=== PATIENT | male | born 1960 | race Caucasian/White ===

== ENCOUNTER 2022-12-02 14:14 | Outpatient (CLI) | payer BC, SELFPAY ==
[2022-12-02 16:32] LABS: Albumin* 4.6 g/dL (3.3-5.0); Chloride* 110 mmol/L (96-114)
[2022-12-02 16:33] LABS: Potassium* 4.6 mmol/L (3.6-5.1); Sodium* 145 mmol/L (135-149)
[2022-12-02 16:35] LABS: Bilirubin Total* 0.5 mg/dL (0.1-1.5); Carbon Dioxide* 27 mmol/L (20-32); Cholesterol* 249 mg/dL (90-199); Creatinine* 1.1 mg/dL (0.5-1.5); Estimated Glomerular Filt Rate 76 ml/min
[2022-12-02 16:36] LABS: Alanine Aminotransferase* 33 U/L (4-50); Alkaline Phosphatase* 67 U/L (40-150); Aspartate Amino Transferase* 34 U/L (12-35); Blood Urea Nitrogen* 23 mg/dL (7-30); Calcium* 9.6 mg/dL (8.4-10.6); Glucose* 98 mg/dL (60-115); HDL Cholesterol* 51 mg/dL (>=40); LDL Cholesterol Calculated 164 mg/dL (<100); Total Protein* 7.2 g/dL (6.0-8.3); Triglycerides* 172 mg/dL (40-149)
[2022-12-02 16:56] LABS: Vitamin D 25 Hydroxy* 31 ng/mL (30-80)
[2022-12-02 17:07] LABS: PSA Screen* 1.01 ng/mL (0.10-4.00)
[2022-12-02 17:09] LABS: TSH With Reflex to FT4* 0.067 uIU/mL (0.270-4.200)
[2022-12-02 18:18] LABS: Free T4 Free Thyroxine* 1.74 ng/dL (0.70-1.85)
== END 2022-12-02 14:15 | disposition home or self-care (01) ==
PROVIDERS: PCP Family Medicine; Visit Provider Family Medicine
DX: Z00.00 Encounter for general adult medical examination without abnormal findings (principal); E03.9 Hypothyroidism, unspecified; E78.5 Hyperlipidemia, unspecified; E55.9 Vitamin D deficiency, unspecified; R79.89 Other specified abnormal findings of blood chemistry; Z12.5 Encounter for screening for malignant neoplasm of prostate
CPT/HCPCS: 80053; 80061; 82306; 84153; 84439; 84443

== ENCOUNTER 2023-03-27 16:12 | Outpatient (CLI) | payer BC, SELFPAY | END 2023-03-27 16:13 | disposition home or self-care (01) | PROVIDERS: PCP Family Medicine; Visit Provider Family Medicine | DX: Z11.3 Encounter for screening for infections with a predominantly sexual mode of transmission (principal); W26.9XXA Contact with unspecified sharp object(s), initial encounter | CPT/HCPCS: 86703; 86706; 86803; 87341 ==

== ENCOUNTER 2023-09-19 13:25 | Outpatient (CLI) | payer BC, SELFPAY | END 2023-09-19 13:26 | disposition home or self-care (01) | LOC: NFLDREF 09-22 07:12 | PROVIDERS: PCP Family Medicine; Referring Provider Family Medicine; Visit Provider Family Medicine | DX: S61.211S Laceration without foreign body of left index finger without damage to nail, sequela (principal); Y99.0 Civilian activity done for income or pay | CPT/HCPCS: 86703; 86706; 86708; 86803; 87340; 87341 ==

== ENCOUNTER 2023-10-06 14:00 | Outpatient (REF) | payer BC, SELFPAY | END 2023-10-06 14:01 | disposition home or self-care (01) | LOC: NFLDREF 14:00 | PROVIDERS: PCP Family Medicine; Referring Provider Family Medicine; Visit Provider Family Medicine | DX: Z57.8 Occupational exposure to other risk factors (principal); W26.9XXA Contact with unspecified sharp object(s), initial encounter | CPT/HCPCS: 86706; 86708 ==

== ENCOUNTER 2023-12-08 14:50 | Outpatient (CLI) | payer BC, SELFPAY ==
--- OUTSIDE RECORDS SUMMARY | 2023-12-09 07:46 | XMS_ITS | Clinical Summary ---
Author Name Unknown Organization [facility] Address [place], [place] [address] Care Team Providers Care Electrical Installation Supervisor Name Role Phone Ozzie Juarez MD Primary Care Provider [phone] [phone] Allergies No known active allergies Medications Medication Sig Dispensed Refills Start Date End Date Status calcium with vitamin D3 (CALCIUM 500 MG-VITAMIN D 200 UNITS) tablet Take 1 tablet by mouth 2 times daily with meals. 180 tablet 0 03/20/2015 Active gabapentin (NEURONTIN) 300 mg capsule TAKE 1 CAPSULE BY MOUTH NIGHTLY X ONE WEEK, INCREASE TO 2 CAPSULES NIGHTLY IF NEEDED. 0 11/21/2021 Active levothyroxine (SYNTHROID) 175 mcg tabletIndications:Post surgical hypothyroidism Take 1 Tablet (175 mcg) by mouth once daily. 30 Tablet 0 02/23/2023 Active Active Problems Problem Noted Date Diagnosed Date Hyperopia of both eyes with astigmatism and pres byopia 08/28/2017 Postsurgical hypothyroidism 12/02/2014 Papillary thyroid carcinoma 12/02/2014 Overview: Thyroidectomy 11/15/14 4 cm left lobe follicular variant of papillary thyroid carcinoma negative margins, no vascular invasion 0/1 LN TNM stage II MACIS score = 5.4 (< 1% 20-year cancer-related mortality) 102.7 mCi radioactive iodine ablation 01/04/15 1 week postablative scan negative + [facility] neck ultrasound 09/03 neg HUY titre coming down by 2015 Displacement of cervical int ervertebral disc without myelopathy 01/07/2006 Other and unspecified hyperlipidemia 08/08/2004 Overview: Total and LDL elevated with no meds Jun 2009: Chol: 236 07/06/09 10:31 AM HDL: 39 07/06/09 10:31 AM; LDL: 168 07/06/09 10:31 AM DEPRESSION Resolved Problems Problem Noted Date Diagnosed Date Resolved Date Cervicalgia 06/20/2004 12/02/2014 EPICONDYLITIS, MEDIAL 2014 EPICONDYLITIS, LATERAL 12/02 Immunizations Name Administration Dates Next Due Tdap 07/06/2009 Family History Medical History Relation Name Comments Heart Disease Father [place] at 51 Cancer Maternal Aunt 1 Lung Cancer Maternal Aunt 2 Lung Heart Disease Maternal Grandfather [place] in 60-70 Cancer Maternal Grandmother unknown type Macular degeneration Mother Relation Name Status Comments Father Maternal Aunt 1 Maternal Aunt 2 Maternal Grandfather Maternal Grandmother Mother Social History Tobacco Use Types Packs/Day Years Used Date Smoking Tobacco: Never Smokeless Tobacco: Never Tobacco Cessation:Counseling Given: Yes Alcohol Use Standard Drinks/Week Comments No 0 (1 standard drink = 0.6 oz pur e alcohol) monthly Social Connections Answer Date Recorded Frequency of Communication with Friends and Fami ly Not on file 10/20/2021 Financial Resource Strain Answer Date R ecorded Difficulty of Paying Living Expenses Not on file 10/20/2021 Difficulty of Paying Living Expenses Not on file 10/20/2021 Sex and Gender Information Value Date Recorded Sex Assigned at Not on file Gender Identity Not on file Sexual Orientation Not on file Obstetrics History Last Filed Vital Signs Vital Sign Reading Time Taken Comments Blood Pressure 159/78 03/26/2023 2:38 PM CDT tow er Pulse 62 03/26/2023 2:38 PM CDT Temperature 36.8 ??C (98.3 ??F) 04/12/2020 3:39 PM CD T Respiratory Rate 16 07/27/2009 4:32 PM CDT Oxygen Saturation 98% 03/26/2023 2:38 PM CDT Inhaled Oxygen Concentration - - Weight 97.1 kg (214 lb) 03/26/2023 2:38 PM CDT Height 185.4 cm (6' 1) 09/01/2015 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 Body Mass Index 28.23 09/01/2015 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 Plan of Treatment Health Maintenance Due Date Last Done Comments Depression screening for age 12+ 1973 HIV for age 15-65 1976 BMI (ht and wt on same day) for age 18+ 1979 Hepatitis C screening for age 18-79 1979 Colonoscopy through age 75 2006 Zoster (shingles) series for age 50+ (1 of 2) 2011 Lipids for age 45-75 07/06/2014 07/06/2009, 08/06/2006, 06/27/2004 Tetanus booster 07/06/2019 07/06/2009 COVID-19 vaccine series (2022- season) 2023 07/31/2022, 11/13/2021, 01/30/2021, Additional history exists Influenza for age 50-64 06/20/2023 Tdap Completed 07/06/2009 Pneumococcal series for age 6-64 Aged Out No longer eligible based on patient's age to complete this topic Care Teams Electrical Installation Supervisor Relationship Specialty Start Date End Date Ozzie Juarez MD [address] [place] [address] PCP - General Family Practice 12/02/14
== END 2023-12-08 14:51 | disposition home or self-care (01) ==
PROVIDERS: PCP Family Medicine; Referring Provider Family Medicine; Visit Provider Family Medicine
DX: E78.5 Hyperlipidemia, unspecified (principal); E03.9 Hypothyroidism, unspecified; C73 Malignant neoplasm of thyroid gland; Z13.228 Encounter for screening for other metabolic disorders
CPT/HCPCS: 80053; 80061; 84432; 84439; 84443; 86800

== ENCOUNTER 2024-03-03 15:22 | Outpatient (CLI) | payer BC, SELFPAY ==
--- OUTSIDE RECORDS SUMMARY | 2024-03-03 15:24 | XMS_ITS | Clinical Summary ---
Author Name Unknown Organization [facility] Address [place], [place] [address] Care Team Providers Care Insurance Agent Name Role Phone Ozzie Juarez MD Primary Care Provider [phone] [phone] Allergies No known active allergies Medications Medication Sig Dispensed Refills Start Date End Date Status calcium with vitamin D3 (CALCIUM 500 MG-VITAMIN D 200 UNITS) tablet Take 1 tablet by mouth 2 times daily with meals. 180 tablet 0 03/20/2015 Active gabapentin (NEURONTIN) 300 mg capsule TAKE 1 CAPSULE BY MOUTH NIGHTLY X ONE WEEK, INCREASE TO 2 CAPSULES NIGHTLY IF NEEDED. 11/21/2021 Active levothyroxine (SYNTHROID) 175 mcg tabletIndications:Post surgical hypothyroidism Take 1 Tablet (175 mcg) by mouth once daily. 30 Tablet 02/23/2023 Active Active Problems Problem Noted Date [...] with no meds Jun 2009: Chol: 236 9/17/09 10:31 AM HDL: 39 07/06/09 10:31 AM; LDL: 168 07/06/09 10:31 AM DEPRESSION Resolved Problems Problem Noted Date Diagnosed Date Resolved Date Cervicalgia 06/20/2004 12/02/2014 EPICONDYLITIS, MEDIAL 2014 EPICONDYLITIS, LATERAL 12/02 Immunizations Name Administration Dates Next Due Tdap 07/06/2009 Family History Medical History Relation Name Comments Heart Disease Father [place] at 51 Cancer Maternal Aunt 1 Lung Cancer Maternal Aunt 2 Lung Heart Disease Maternal Grandfather [place] in 60-70 Cancer Maternal Grandmother unknown type [...] 185.4 cm (6' 1) 09/01/2015 4:31 PM PHARMACY TECH Body Mass Index 28.23 09/01/2015 4:31 PM PHARMACY TECH Plan of Treatment Health Maintenance Due Date [...] Tetanus booster 07/06/2019 07/06/2009 COVID-19 vaccine series (2022-24 season) 2023 07/31/2022, 11/13/2021, 01/30/2021, Additional history exists Influenza for age 50-64 06/20/2024 Tdap Completed 07/06/2009 Pneumococcal series for age 6-64 Aged Out No longer eligible based on patient's age to complete this topic Procedures Procedure Name Priority Date/Time Associated Diagnosis Comments LIPID PANEL Routine 07/06/2009 10:31 AM CDT Screening for Lipoid Disorders from Last 3 Months or Most Recently Relevant to Health Maintenance Results * (ABNORMAL) LIPID PANEL [17385.0] (07/06/2009 10:31 AM CDT) CHOLESTEROL,TOTAL 236(H) 110 - 199 mg/dL [facility] TRIGLYCERIDES 143 40 - 149 mg/dL [facility] HDL CHOLESTEROL 39(L) >40 mg/dL [facility] CHOL/HDL RATIO 6.05(H) <4.51 [facility] LDL CHOLESTEROL 168(H) <131 mg/dL [facility] PATIENT STATUS Fasting [facility] Blood specimen (specimen) BLOOD SPECIMEN / Unknown 07/06/2009 10:31 AM CDT 07/06/2009 10:20 AM CDT Jasvir Vásquez MD CHEMISTRY [facility] INTERNAL ZIP [address] [address] from Last 3 Months or Most Recently Relevant to Health Maintenance Care Teams Insurance Agent Relationship Specialty Start Date End Date Ozzie Juarez MD [address] [place], [place] [id number] PCP - General Family Practice 12/02/14
== END 2024-03-03 15:23 | disposition home or self-care (01) ==
LOC: NFLDREF 15:22
PROVIDERS: PCP Family Medicine; Visit Provider Family Medicine
DX: E03.9 Hypothyroidism, unspecified (principal)
CPT/HCPCS: 84443

== ENCOUNTER 2024-06-24 14:16 | Outpatient (CLI) | payer BC, SELFPAY ==
--- OUTSIDE RECORDS SUMMARY | 2024-06-29 09:31 | XMS_ITS | Clinical Summary ---
Author Organization [facility] Address [place], [place] [address] Care Team Providers Care Roving Carrier Name Role Phone Ozzie Juarez MD Primary Care Provider [phone] Allergies No known active allergies Medications Medication [...] Postsurgical hypothyroidism 12/02/2014 Papillary thyroid carcinoma 12/02/2014 Overview (09/15/2017): Thyroidectomy 11/15/14 4 cm left lobe follicular [...] myelopathy 01/07/2006 Other and unspecified hyperlipidemia 08/08/2004 Overview (07/09/2009): Total and LDL elevated with no meds Jun 2009: Chol: 236 07/06/09 10:31 AM HDL: 39 07/06/09 10:31 AM; LDL: 168 07/06/09 10:31 AM DEPRESSION Resolved Problems Problem Noted Date Diagnosed Date Resolved Date Cervicalgia 06/20/2004 12/02/2014 EPICONDYLITIS, MEDIAL 2014 EPICONDYLITIS, LATERAL 12/02 Immunizations Name Administration Dates Next Due Tdap 07/06/2009 Family History Medical History Relation Name Comments Heart Disease Father [place] at 51 Cancer Maternal Aunt 1 Lung Cancer Maternal Aunt 2 Lung Heart Disease Maternal Grandfather [place] in 60-70 Cancer Maternal Grandmother unknown type [...] 185.4 cm (6' 1) 09/01/2015 4:31 PM QUALITY ASSURANCE LEAD Body Mass Index 28.23 09/01/2015 4:31 PM QUALITY ASSURANCE LEAD Plan of Treatment Health Maintenance Due Date [...] 07/06/2019 07/06/2009 COVID-19 vaccine series (2022-24 season) 2024 07/31/2022, 11/13/2021, 01/30/2021, Additional history exists Influenza [...] Health Maintenance Results * (ABNORMAL) LIPID PANEL [[id number]] (07/06/2009 10:31 AM CDT) CHOLESTEROL,TOTAL 236(H) 110 - 199 mg/dL [facility] TRIGLYCERIDES 143 40 - 149 mg/dL [facility] HDL CHOLESTEROL 39(L) >40 mg/dL [facility] CHOL/HDL RATIO 6.05(H) <4.51 [facility] LDL CHOLESTEROL 168(H) <131 mg/dL [facility] PATIENT STATUS Fasting [facility] Blood specimen (specimen) BLOOD SPECIMEN / Unknown 07/06/2009 10:31 AM CDT 07/06/2009 10:20 AM CDT Jasvir Vásquez MD CHEMISTRY [facility] INTERNAL ZIP [address] [address] from Last 3 Months or Most Recently Relevant to Health Maintenance Care Teams Roving Carrier Relationship Specialty Start Date End Date Ozzie Juarez MD [address] [place] [address] PCP - General Family Practice 12/02/14
== END 2024-06-24 14:17 | disposition home or self-care (01) ==
LOC: NFLDREF 06-29 09:30
PROVIDERS: PCP Family Medicine; Referring Provider Family Medicine; Visit Provider Family Medicine
DX: E03.9 Hypothyroidism, unspecified (principal); C73 Malignant neoplasm of thyroid gland
CPT/HCPCS: 84439; 84443

== ENCOUNTER 2024-08-06 14:25 | Outpatient (CLI) | payer BC, SELFPAY ==
--- OUTSIDE RECORDS SUMMARY | 2024-08-10 14:48 | XMS_ITS | Clinical Summary ---
Author Organization [facility] Address [place], [place] [address] Care Team Providers Care Well Services Operator Name Role Phone Ozzie Juarez MD Primary Care Provider [phone] [phone] Allergies No known active allergies Medications Medication [...] History Relation Name Comments Heart Disease Father [place] at 51 Cancer Maternal Aunt 1 Lung Cancer Maternal Aunt 2 Lung Heart Disease Maternal Grandfather [place] in 60-70 Cancer Maternal Grandmother unknown type [...] 185.4 cm (6' 1) 09/01/2015 4:31 PM GAMBLING BOX PERSON Body Mass Index 28.23 09/01/2015 4:31 PM GAMBLING BOX PERSON Plan of Treatment Health Maintenance Due Date [...] Tetanus booster 07/06/2019 07/06/2009 COVID-19 vaccine series (2023- season) 2024 07/31/2022, 11/13/2021, 01/30/2021, Additional history [...] Health Maintenance Results * (ABNORMAL) LIPID PANEL [[id number]] (07/06/2009 10:31 AM CDT) CHOLESTEROL,TOTAL 236(H) 110 - 199 mg/dL [facility] TRIGLYCERIDES 143 40 - 149 mg/dL [facility] HDL CHOLESTEROL 39(L) >40 mg/dL [facility] CHOL/HDL RATIO 6.05(H) <4.51 [facility] LDL CHOLESTEROL 168(H) <131 mg/dL [facility] PATIENT STATUS Fasting [facility] Blood specimen (specimen) BLOOD SPECIMEN / Unknown 07/06/2009 10:31 AM CDT 07/06/2009 10:20 AM CDT Jasvir Vásquez MD CHEMISTRY [facility] INTERNAL ZIP [address] [address] from Last 3 Months or Most Recently Relevant to Health Maintenance Care Teams Well Services Operator Relationship Specialty Start Date End Date Ozzie Juarez MD [address] [place] [address] PCP - General Family Practice 12/02/14
== END 2024-08-06 14:26 | disposition home or self-care (01) ==
LOC: NFLDREF 08-10 14:46
PROVIDERS: PCP Family Medicine; Referring Provider Family Medicine; Visit Provider Registered Nurse
DX: E03.9 Hypothyroidism, unspecified (principal)
CPT/HCPCS: 84439; 84443

== ENCOUNTER 2024-09-21 14:29 | Outpatient (CLI) | payer BC, SELFPAY ==
--- OUTSIDE RECORDS SUMMARY | 2024-09-25 18:12 | XMS_ITS | Clinical Summary ---
Author Organization [facility] Address [place], [place] [address] Care Team Providers Care Dude Wrangler Name Role Phone Ozzie Juarez MD Primary Care Provider [phone] [phone] Allergies No known active allergies Medications calcium with vitamin D3 (CALCIUM 500 MG-VITAMIN D 200 UNITS) tablet Take 1 tablet by mouth 2 times daily with meals. 180 tablet 0 5 Active gabapentin (NEURONTIN) 300 mg capsule TAKE 1 CAPSULE BY MOUTH NIGHTLY X ONE WEEK, INCREASE TO 2 CAPSULES NIGHTLY IF NEEDED. 2 Active levothyroxine (SYNTHROID) 175 mcg tabletIndications:P ostsurgical hypothyroidism Take 1 Tablet (175 mcg) by mouth once daily. 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 Gender Identity Not on file Sexual Orientation Not on file Obstetrics History Last Filed Vital Signs Vital Sign Reading Time Taken Comments Blood Pressure 159/78 03/26/2023 2:38 PM CDT tow er Pulse 62 03/26/2023 2:38 PM CDT Temperature 36.8 C (98.3 F) 04/12/2020 3:39 PM CDT Respiratory Rate 16 07/27/2009 4:32 PM CDT Oxygen Saturation 98% 03/26/2023 2:38 PM CDT Inhaled Oxygen Concentration - - Weight 97.1 kg (214 lb) 03/26/2023 2:38 PM CDT Height 185.4 cm (6' 1) 09/01/2015 4:31 PM JANITOR CUSTODIAN Body Mass Index 28.23 09/01/2015 4:31 PM JANITOR CUSTODIAN Plan of Treatment Health Maintenance Due Date [...] Tetanus booster 07/06/2019 07/06/2009 COVID-19 vaccine series ( season) 2024 07/31/2022, 11/13/2021, 01/30/2021, Additional history [...] Health Maintenance Results * (ABNORMAL) LIPID PANEL [[id number]] (07/06/2009 10:31 AM CDT) CHOLESTEROL,TOTAL 236(H) 110 - 199 mg/dL [facility] TRIGLYCERIDES 143 40 - 149 mg/dL [facility] HDL CHOLESTEROL 39(L) >40 mg/dL [facility] CHOL/HDL RATIO 6.05(H) <4.51 [facility] LDL CHOLESTEROL 168(H) <131 mg/dL [facility] PATIENT STATUS Fasting [facility] Blood specimen (specimen) BLOOD SPECIMEN / Unknown 07/06/2009 10:31 AM CDT 07/06/2009 10:20 AM CDT us Jasvir Vásquez MD CHEMISTRY Final Res ult [facility] INTERNAL ZIP [phone] [address] from Last 3 Months or Most Recently Relevant to Health Maintenance Insurance [facility] [place] [address] Care Teams Dude Wrangler Relationship Specialty Start Date End Date Ozzie Juarez MD [address] [place] [address] PCP - General Family Practice 12/02/14
== END 2024-09-21 14:30 | disposition home or self-care (01) ==
LOC: NFLDREF 09-25 18:10
PROVIDERS: PCP Family Medicine; Referring Provider Family Medicine; Visit Provider Family Medicine
DX: E03.9 Hypothyroidism, unspecified (principal); C73 Malignant neoplasm of thyroid gland
CPT/HCPCS: 84443

== ENCOUNTER 2024-12-09 08:34 | Outpatient (CLI) | payer BC, SELFPAY ==
--- NOTE | 2024-12-09 09:37 | P.ANES_ITS ---
Anesthesia Charges Start Date/Time Anesthesia Start Date: 12/09/24 Anesthesia Start Time: 09:14 Stop Date/Time Anesthesia Stop Date: 12/09/24 Anesthesia Stop Time: 09:35 Coding CPT Codes CPT Codes: ANES LWR INTST SCR COLSC - 79597 ([id number]) P2 - PATIENT W/MILD SYST DISEASE, QK - BUILDING DRAFTING OFFICER 2-4 CNCRNT ANES PROC, QX - HOUSEKEEPING ASSOCIATE SVC W/ MD MED DIRECTION
--- NOTE | 2024-12-09 09:37 | W.ANESCHARGE ---
Anesthesia Charges Start Date/Time Anesthesia Start Date: 12/09/24 Anesthesia Start Time: 09:14 Stop Date/Time Anesthesia Stop Date: 12/09/24 Anesthesia Stop Time: 09:35 Coding CPT Codes CPT Codes: ANES LWR INTST SCR COLSC - [id number] ([id number]) P2 - PATIENT W/MILD SYST DISEASE, QK - JOINERY FACTORY WORKER 2-4 CNCRNT ANES PROC, QX - STATISTICS INTERN SVC W/ MD MED DIRECTION
--- NOTE | 2024-12-09 09:43 | P.ANES_ITS ---
Anesthesia Charges Start Date/Time Anesthesia Start Date: 12/09/24 Anesthesia Start Time: 09:14 Stop Date/Time Anesthesia Stop Date: 12/09/24 Anesthesia Stop Time: 09:35 Coding CPT Codes CPT Codes: ANES LWR INTST SCR COLSC - 84577 ([id number]) P2 - PATIENT W/MILD SYST DISEASE, QK - FOREIGN LEGAL CONSULTANT 2-4 CNCRNT ANES PROC, QX - AMBULANCE MECHANIC SVC W/ MD MED DIRECTION
--- NOTE | 2024-12-09 09:43 | W.ANESCHARGE ---
Anesthesia Charges Start Date/Time Anesthesia Start Date: 12/09/24 Anesthesia Start Time: 09:14 Stop Date/Time Anesthesia Stop Date: 12/09/24 Anesthesia Stop Time: 09:35 Coding CPT Codes CPT Codes: ANES LWR INTST SCR COLSC - 87805 ([id number]) P2 - PATIENT W/MILD SYST DISEASE, QK - CASHIER SUPERVISOR 2-4 CNCRNT ANES PROC, QX - SODA FOUNTAIN OPERATOR SVC W/ MD MED DIRECTION
== END 2024-12-09 08:35 | disposition home or self-care (01) ==
LOC: OP CLINIC 08:35
PROVIDERS: PCP Family Medicine; Visit Provider Surgery
DX: Z12.11 Encounter for screening for malignant neoplasm of colon (principal); K57.30 Diverticulosis of large intestine without perforation or abscess without bleeding; Z86.0100 Personal history of colon polyps, unspecified
CPT/HCPCS: 00812; 45378; J2704

== ENCOUNTER 2025-01-17 14:15 | Outpatient (CLI) | payer BC, SELFPAY | END 2025-01-17 14:16 | disposition home or self-care (01) | LOC: NFLDREF 01-18 00:41 | PROVIDERS: PCP Family Medicine; Referring Provider Family Medicine; Visit Provider Family Medicine | DX: E78.5 Hyperlipidemia, unspecified (principal); C73 Malignant neoplasm of thyroid gland; E03.9 Hypothyroidism, unspecified | CPT/HCPCS: 80053; 80061; 84432; 84443; 86800 ==

== ENCOUNTER 2025-09-28 07:47 | Outpatient (CLI) | payer BC, SELFPAY | END 2025-09-28 07:48 | disposition home or self-care (01) | LOC: FRMREF 07:47 | PROVIDERS: PCP Family Medicine; Visit Provider Family Medicine | DX: E03.9 Hypothyroidism, unspecified (principal) | CPT/HCPCS: 84439; 84443 ==